=== PATIENT | female | born 1980 | race Caucasian/White ===

== ENCOUNTER 2017-01-01 21:37 | Emergency (ER) | payer MEDICAID ==
[~2017-01-01] VITALS: Ht 157.5 cm; Wt 49.9 kg
--- NOTE | 2017-01-01 21:50 | NUR ---
PT AMBULATORY TO ER BED 09. C/O DYSURIA AND URGENCY X 2 DAYS. PT APPEARS ANXIOUS. 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 TACHY OOTHEWISE STABLE VITALS. AWAITING MD RENTERIA.
[2017-01-01 22:07] LABS: APPEARANCE,URINE SL CLOUDY (CLEAR); BILIRUBIN,URINE NEGATIVE (NEGATIVE); BLOOD, URINE 3+ Ery/uL (NEGATIVE); COLOR,URINE YELLOW (YELLOW); KETONES,URINE NEGATIVE (NEGATIVE); LEUKOCYTE ESTERASE ,URINE 2+ (NEGATIVE); NITRITE, URINE NEGATIVE (NEGATIVE); PROTEIN,URINE 2+ mg/dl (NEGATIVE); UGLUCOSE NEGATIVE (NEGATIVE); UROBILINOGEN,URINE 0.2 EU/dL (0.2)
[2017-01-01 22:14] LABS: BACTERIA,URINE Many /HPF (None Seen); RBC,URINE 51-80 /HPF (0-2); SQUAMOUS EPITHELIAL CELL,UR Few /HPF (None Seen); WBC,URINE TOO NUMEROUS TO COUN /HPF (0-3)
[2017-01-01 22:15] LABS: PREGNANCY TEST URINE QUAL NEGATIVE (NEGATIVE)
--- NOTE | 2017-01-01 23:00 | NUR ---
DR BLUNT AT BEDSIDE FOR EVAL.
[2017-01-01 23:29] VITALS: BP 125/80
== END 2017-01-01 23:31 | disposition home or self-care (01) ==
LOC: ER 21:37
DX: N12 Tubulo-interstitial nephritis, not specified as acute or chronic (principal); F17.200 Nicotine dependence, unspecified, uncomplicated; Z91.041 Radiographic dye allergy status
CPT/HCPCS: 81000-TC; 84703-TC; 87086-TC; 87186-TC; A4606; Z7610